=== PATIENT | male | born 1990 | race Caucasian/White ===

== ENCOUNTER 2019-01-05 04:30 | Emergency (ER) | payer OTHER ==
[~2019-01-05] VITALS: Ht 185.4 cm; Wt 108.9 kg
[2019-01-05 04:30] VITALS: BP 128/78
[2019-01-05] MEDS ORDERED: methylPREDNISolone SOD SUCC PF 125 MG/2 ML VIAL. ONE (04:48)
[2019-01-05] MEDS ORDERED: diphenhydrAMINE 50 MG/ML VIAL ONE (04:48)
[2019-01-05] MEDS ORDERED: cefTRIAXone IM 250 MG VIAL IM ONE (05:15)
[2019-01-05] MEDS ORDERED: AZITHROMYCIN 250 MG TABLET. PO ONE (05:15)
--- NOTE | 2019-01-05 05:21 | PHYS DOC ---
Past History Past Medical History: Hypothyroid Past Surgical History: No Surgical History Alcohol Use: None Drug Use: None Adult General Chief Complaint Chief Complaint: PAIN ON URINATION HPI HPI Patient is a 28-year-old male who presents with complaint of urinary discomfort for the last week and has noted a penile discharge over the last couple of days. Patient does admit to a new sexual partner in the recent past but indicates that he has had protected intercourse. He is not able to say with certainty that the condom did not break. He denies any fever, nausea or vomiting. He also denies any abdominal pain.[] Review of Systems Review of Systems Constitutional: Denies fever or chills [] Respiratory: Denies cough or shortness of breath [] Cardiovascular: No additional information not addressed in HPI [] GI: Denies abdominal pain, nausea, vomiting or diarrhea [] : Complains of dysuria and penile discharge[] Musculoskeletal: Denies back pain or joint pain [] Current Medications Current Medications Current Medications Medications (Trade) Dose Ordered Sig/Charles Start Time Stop Time Status Last Admin Dose Admin Azithromycin (Zithromax) 1,000 mg 1X ONCE 01/05/19 05:15 01/05/19 05:16 UNV Ceftriaxone Sodium (Rocephin Im) 250 mg 1X ONCE 01/05/19 05:15 01/05/19 05:16 UNV Diphenhydramine HCl (Benadryl) 50 mg STK-MED ONCE 01/05/19 04:48 01/05/19 04:48 DC Methylprednisolone Sodium Succinate (SOLU-Medrol 125MG VIAL) 125 mg STK-MED ONCE 01/05/19 04:48 01/05/19 04:48 DC Physical Exam Physical Exam Constitutional: Well developed, well nourished, no acute distress, non-toxic appearance. [] Cardiovascular:Heart rate regular rhythm, no murmur [] Lungs & Thorax: Bilateral breath sounds clear to auscultation [] Abdomen: Bowel sounds normal, soft, no tenderness. [] : There is scant amount of purulent drainage noted from urethra. [] Current Patient Data Vital Signs Vital Signs Date Time Temp Pulse Resp B/P (MAP) Pulse Ox O2 Delivery O2 Flow Rate FiO2 01/05/19 04:30 98.4 72 18 98 Room Air EKG EKG [] Radiology/Procedures Radiology/Procedures [] Course & Med Decision Making Course & Med Decision Making Pertinent Labs and Imaging studies reviewed. (See chart for details) [] Dragon Disclaimer Dragon Disclaimer This electronic medical record was generated, in whole or in part, using a voice recognition dictation system. Departure Departure: Impression: Primary Impression: STD (male) Disposition: HOME, SELF-CARE Condition: STABLE Referrals: PCP,NO (PCP) Patient Instructions: Sexually Transmitted Disease Scripts Sulfamethoxazole/Trimethoprim (BACTRIM DS TABLET) 1 Each Tablet 1 TAB PO BID for infection, #14 TAB Prov: ERYN PERRY Jr. DO 01/05/19 ERYN PERRY Jr. DO Jan 05, 2019 05:21
[2019-01-05] MEDS ORDERED: LIDOCAINE 1% Multi-Dose 20 ML VIAL. ONE (05:29)
[2019-01-05 05:48] LABS: BACTERIA,URINE FEW /HPF (0-FEW); BILIRUBIN,URINE NEG (NEG); CLARITY,URINE HAZY; COLOR,URINE YELLOW; GLUCOSE,URINE NEG (NEG); NITRITE,URINE NEG (NEG); RBC,URINE OCC /HPF (0-2); SQUAMOUS EPITHELIAL CELL,UR OCC /LPF; UROBILINOGEN,URINE 0.2 mg/dL (0.2 mg/dL); WBC,URINE >40 /HPF (0-4)
[2019-01-05] MEDS ORDERED: SULF1TAB24 PO (06:06)
== END 2019-01-05 06:20 | disposition home or self-care (01) ==
LOC: ER 04:30
DX: A64 Unspecified sexually transmitted disease (principal); E03.9 Hypothyroidism, unspecified
CPT/HCPCS: 36415; 81001; 87086; 87491; 87591; 96372; 99284; J0456; J0696